=== PATIENT | female | born 1955 | race Caucasian/White ===

== ENCOUNTER 2021-09-03 05:59 | Day surgery (SDC) | payer OTHER ==
[~2021-09-03] VITALS: Ht 152.4 cm; Wt 86.4 kg
[~2021-09-03 05:59] MED LIST: MOME13HF IH; OMEP20 PO; TIOT185 IH
[2021-09-03] MEDS ORDERED: SODIUM CHLORIDE 0.9% 1,000 ML IV ONE (06:30)
[2021-09-03] MEDS ORDERED: SODIUM CHLORIDE 0.9% 1,000 ML ONE (06:32)
[2021-09-03 06:37] LABS: COVID AG,FIA SOURCE NASAL SWAB
[2021-09-03] MEDS ORDERED: ESCI-8 PO (07:19)
[2021-09-03] MEDS ORDERED: SIMV-260 PO (07:22)
[2021-09-03] MEDS ORDERED: PRED-729 PO (07:23)
[2021-09-03] MEDS ORDERED: FAMO20 PO (07:24)
[2021-09-03] MEDS ORDERED: LEVO150 PO (07:24)
[2021-09-03] MEDS ORDERED: CETI1SOL83 PO (07:25)
[2021-09-03] MEDS ORDERED: APIX5TAB PO (07:26)
[2021-09-03] MEDS ORDERED: METF-1211 PO (07:26)
[2021-09-03 07:31] LABS: GLUCOMETER DEV NAME(LOC) SDS.; GLUCOSE,POINT OF CARE 149 MG/DL (70-110)
[2021-09-03] MEDS ORDERED: BUPR-344 PO (07:31)
[2021-09-03] MEDS ORDERED: ASCO500C6 PO (07:32)
[2021-09-03] MEDS ORDERED: ALEN35TA41 PO (07:32)
[2021-09-03] MEDS ORDERED: FentaNYL CITRATE PF 100 MCG/2 ML VIAL ONE (07:53)
[2021-09-03] MEDS ORDERED: MIDAZOLAM HCL 5 MG/ML VIAL ONE (07:54)
[2021-09-03] MEDS ORDERED: MethylPREDNISolone SOD SUCC 125 MG/2 ML VIAL IVP ONE ×2 (09:15→09:45)
[2021-09-03] MEDS ORDERED: OXYGEN THERAPY IH SCH ×2 (20:00)
== END 2021-09-03 10:55 | disposition home or self-care (01) ==
LOC: SURGERY 05:59
PROVIDERS: ATTEND Internal Medicine Critical Care Medicine
DX: R05.3 Chronic cough (principal); R91.8 Other nonspecific abnormal finding of lung field; R06.2 Wheezing; J44.9 Chronic obstructive pulmonary disease, unspecified; F17.210 Nicotine dependence, cigarettes, uncomplicated; E03.9 Hypothyroidism, unspecified; Z20.822 Contact with and (suspected) exposure to COVID-19; Z79.899 Other long term (current) drug therapy; Z98.890 Other specified postprocedural states
CPT/HCPCS: 31623; 31624; 71045; 82962; 87015; 87070; 87101; 87206; 87220; 87426; 88184; 88185; C9803; J2250; J2930; J3010; J7030; 88112; 88312

== ENCOUNTER 2022-12-16 06:12 | Day surgery (SDC) | payer OTHER ==
[~2022-12-16] VITALS: Ht 147.3 cm; Wt 91.8 kg
[~2022-12-16 06:12] MED LIST changes: +ALEN35TA41 PO; +APIX5TAB PO; +ASCO500C6 PO; +BUPR-344 PO; +CETI1SOL83 PO; +ESCI-8 PO; +FAMO20 PO; +LEVO150 PO; +METF-1211 PO; -MOME13HF IH; +MOME13HF11 IH; -OMEP20 PO; +PRED-729 PO; +SIMV-260 PO; -TIOT185 IH
[2022-12-16] MEDS ORDERED: LIDOCAINE 4% 50 ML SOLUTION TP ONE (06:13)
[2022-12-16] MEDS ORDERED: LIDOCAINE 2% 11 ML JELLY TP ONE (06:13)
[2022-12-16] MEDS ORDERED: BENZOCAINE 20% 50 MCG/SPRAY 57 GM TP ONE (06:13)
[2022-12-16] MEDS ORDERED: LEVALBUTEROL 1.25 MG/0.5 ML NEB SOLUTION NEB ONE (06:13)
[2022-12-16] MEDS ORDERED: SODIUM CHLORIDE 0.9% 1,000 ML IV ONE (07:00)
[2022-12-16] MEDS ORDERED: SEMA0.258 SQ (07:19)
[2022-12-16] MEDS ORDERED: SODIUM CHLORIDE 0.9% 1,000 ML ONE (07:31)
[2022-12-16] MEDS ORDERED: MIDAZOLAM HCL 2 MG/2 ML VIAL ONE (08:27)
[2022-12-16] MEDS ORDERED: FentaNYL CITRATE PF 100 MCG/2 ML VIAL ONE (08:27)
[2022-12-16 08:34] LABS: GLUCOMETER DEV NAME(LOC) SDS.
[2022-12-16 09:36] VITALS: PULSE 80; RESP 17; O2SAT 100
[2022-12-16] MEDS ORDERED: MethylPREDNISolone SOD SUCC 125 MG/2 ML VIAL IVP ONE (09:45)
[2022-12-16] MEDS ORDERED: MethylPREDNISolone SOD SUCC 125 MG/2 ML VIAL ONE (09:56)
== END 2022-12-16 11:35 | disposition home or self-care (01) ==
LOC: SURGERY 06:12
PROVIDERS: ATTEND Internal Medicine Critical Care Medicine
DX: J38.4 Edema of larynx (principal); B37.0 Candidal stomatitis; G47.30 Sleep apnea, unspecified; Z20.822 Contact with and (suspected) exposure to COVID-19; J43.9 Emphysema, unspecified; Z98.890 Other specified postprocedural states; Z85.118 Personal history of other malignant neoplasm of bronchus and lung; Z87.891 Personal history of nicotine dependence; Z79.899 Other long term (current) drug therapy
CPT/HCPCS: 31623; 88112; 82962; 87206; 87101; 87220; 87070; 31624; 94640; 71045; 87015; 93005; J3010; J2250; J2930; Q9967; J7030; Z7610